=== PATIENT | female | born 1960 | race Hispanic/Latino ===

== ENCOUNTER → 2024-06-04 | Day surgery (SDC) | payer OTHER ==
[~2024-06-04] MED LIST: AMLODIPINE BESYL5 MG PO; ATORVASTATIN CA20 MG PO; FARXIGA10 MG PO; GLUCAGON FOR INJ 1 MG VIAL ONE; HYOSCYAMINE SULFATE 0.5 MG/ML INJ ONE; LIDOCAINE HCL 2% LOCAL INJ 5 ML SDV VIAL INJ ONE; PIOGLITAZONE HC45 MG PO; PROPOFOL IV EMULSION 50 ML IV ONE
[2024-06-04] MEDS: LACTATED RINGER'S 1,000 ML ONE (10:31)
[2024-06-04 11:50] VITALS: TEMP 97.8
[2024-06-04 12:05] VITALS: BP 150/78; PULSE 80; RESP 16; O2SAT 98
== END | disposition home or self-care (01) ==
LOC: OR 10:09
PROVIDERS: ATTEND Internal Medicine Gastroenterology
DX: K59.09 Other constipation (principal); Z86.0100 Personal history of colon polyps, unspecified; Z71.3 Dietary counseling and surveillance; D64.9 Anemia, unspecified; E11.22 Type 2 diabetes mellitus with diabetic chronic kidney disease; I12.9 Hypertensive chronic kidney disease with stage 1 through stage 4 chronic kidney disease, or unspecified chronic kidney disease; N18.30 Chronic kidney disease, stage 3 unspecified; Z71.89 Other specified counseling; E78.5 Hyperlipidemia, unspecified; N39.0 Urinary tract infection, site not specified; Z01.810 Encounter for preprocedural cardiovascular examination; Z79.84 Long term (current) use of oral hypoglycemic drugs
CPT/HCPCS: 45330; 93005; J1610; J1980; J2003; J2704; J7121; 45378

== ENCOUNTER → 2024-06-06 | Day surgery (SDC) | payer OTHER ==
[~2024-06-06] MED LIST changes: +FENTANYL CITRATE/PF 100MCG/2 ML INJ ONE; -GLUCAGON FOR INJ 1 MG VIAL ONE; +KETAMINE 50MG/5ML SYR ONE; +PROPOFOL IV EMULSION 10 MG/ML 20 ML VIAL ONE; -PROPOFOL IV EMULSION 50 ML IV ONE
[2024-06-06] MEDS: LACTATED RINGER'S 1,000 ML ONE (09:21)
[2024-06-06 12:00] VITALS: BP 147/83; PULSE 88; RESP 18; TEMP 98; O2SAT 100
== END | disposition home or self-care (01) ==
LOC: OR 08:09
PROVIDERS: ATTEND Internal Medicine Gastroenterology
DX: K59.09 Other constipation (principal); Z86.0100 Personal history of colon polyps, unspecified; K64.8 Other hemorrhoids; Z71.3 Dietary counseling and surveillance; E73.9 Lactose intolerance, unspecified; D64.9 Anemia, unspecified; E11.22 Type 2 diabetes mellitus with diabetic chronic kidney disease; I12.9 Hypertensive chronic kidney disease with stage 1 through stage 4 chronic kidney disease, or unspecified chronic kidney disease; N18.30 Chronic kidney disease, stage 3 unspecified; Z71.89 Other specified counseling; E66.9 Obesity, unspecified; Z79.84 Long term (current) use of oral hypoglycemic drugs; Z79.899 Other long term (current) drug therapy; Z68.30 Body mass index [BMI] 30.0-30.9, adult
CPT/HCPCS: 45378; J1980; J2003; J2704; J3010; J7121